=== PATIENT | female | born 1945 | race Caucasian/White ===

== ENCOUNTER 2022-01-10 20:24 | Emergency (ER) | payer MEDICARE, OTHER ==
[2022-01-10 21:04] VITALS: BP 165/83; PULSE 104
[2022-01-10 22:27] LABS: CORONAVIRUS COVID-19 NAA NEGATIVE (NEGATIVE)
== END 2022-01-10 23:03 | disposition home or self-care (01) ==
LOC: JD.ED 20:24
DX: B34.9 Viral infection, unspecified (principal); K21.9 Gastro-esophageal reflux disease without esophagitis; Z88.1 Allergy status to other antibiotic agents; Z88.8 Allergy status to other drugs, medicaments and biological substances; Z79.82 Long term (current) use of aspirin; Z79.899 Other long term (current) drug therapy; Z20.822 Contact with and (suspected) exposure to COVID-19
CPT/HCPCS: 0240U; 71045; 81001; 99283

== ENCOUNTER 2024-07-13 15:38 | Inpatient (IN) | payer MEDICARE, OTHER ==
[2024-07-13 18:58] LABS: BASOPHILS PERCENT AUTO 0.3 % (0.0-1.0); EOSINOPHILS PERCENT AUTO 0.4 % (0.0-6.0); HEMATOCRIT 38.4 % (37.0-47.0); HEMOGLOBIN 12.7 gm/dl (12.0-16.0); IMMATURE GRAN ABSOLUTE AUTO 0.03 K/mm3 (0.00-0.05); IMMATURE GRAN PERCENT AUTO 0.3 % (0.0-0.4); LYMPHOCYTES PERCENT AUTO 8.5 % (24.0-44.0); MEAN CORPUSCULAR HEMOGLOBIN 30.5 pg (28.0-32.0); MEAN CORPUSCULAR HGB CONC 33.1 g/dl (32.0-36.0); MEAN CORPUSCULAR VOLUME 92.1 fl (83.0-99.0); MEAN PLATELET VOLUME 9.2 fl (9.4-12.3); MONOCYTES ABSOLUTE AUTO 0.7 K/mm3 (0.0-0.8); MONOCYTES PERCENT AUTO 6.2 % (0.0-8.0); NEUTROPHILS ABSOLUTE AUTO 9.5 K/mm3 (1.8-7.7); NEUTROPHILS PERCENT AUTO 84.3 % (41.0-71.0); PLATELET COUNT,PLT 256 K/mm3 (150-400); RED BLOOD CELL COUNT 4.17 M/mm3 (4.10-5.30); WHITE BLOOD CELL COUNT,WBC 11.27 K/mm3 (3.9-11.3)
[2024-07-13] MEDS: Piperacillin/Tazobactam 4.5 GM in Sodium Chloride 0.9% 100 ML IV ONE (19:16)
[2024-07-13 19:23] LABS: LACTIC ACID 1.4 mmol/L (0.4-2.0)
[2024-07-13 19:32] LABS: A/G RATIO 0.8 (1-2); ANION GAP 12.5 (5-15); BILIRUBIN TOTAL 0.4 mg/dL (0.2-1.0); C-REACTIVE PROTEIN 13.44 mg/dL (<0.30); CALCIUM 8.6 mg/dL (8.5-10.1); CREATININE 0.7 mg/dL (0.55-1.02); EST CRCL DRUG DOSING (CG) 51.59 mL/min; POTASSIUM,K 3.5 mEq/L (3.5-5.1); PROTEIN TOTAL,TP 6.9 g/dl (6.4-8.2)
[2024-07-13] MEDS: Iopamidol 612 MG/ML 100 ML Bottle IVPUSH ONE (21:06)
[2024-07-14] MEDS: Piperacillin/Tazobactam 4.5 GM in Sodium Chloride 0.9% 100 ML IV SCH (00:35)
[2024-07-14] MEDS ORDERED: Piperacillin/Tazobactam 4.5 GM in Sodium Chloride 0.9% 100 ML IV SCH (03:00)
[2024-07-14 06:03] LABS: BASOPHILS PERCENT AUTO 0.3 % (0.0-1.0); EOSINOPHILS ABSOLUTE AUTO 0.2 K/mm3 (0.0-0.4); EOSINOPHILS PERCENT AUTO 2.5 % (0.0-6.0); HEMATOCRIT 38.5 % (37.0-47.0); HEMOGLOBIN 12.5 gm/dl (12.0-16.0); IMMATURE GRAN ABSOLUTE AUTO 0.03 K/mm3 (0.00-0.05); IMMATURE GRAN PERCENT AUTO 0.3 % (0.0-0.4); LYMPHOCYTES ABSOLUTE AUTO 1.7 K/mm3 (1.0-4.8); LYMPHOCYTES PERCENT AUTO 17.3 % (24.0-44.0); MEAN CORPUSCULAR HGB CONC 32.5 g/dl (32.0-36.0); MEAN CORPUSCULAR VOLUME 92.5 fl (83.0-99.0); MEAN PLATELET VOLUME 9.5 fl (9.4-12.3); MONOCYTES ABSOLUTE AUTO 0.8 K/mm3 (0.0-0.8); MONOCYTES PERCENT AUTO 8.5 % (0.0-8.0); NEUTROPHILS ABSOLUTE AUTO 6.9 K/mm3 (1.8-7.7); NEUTROPHILS PERCENT AUTO 71.1 % (41.0-71.0); PLATELET COUNT,PLT 254 K/mm3 (150-400); RED BLOOD CELL COUNT 4.16 M/mm3 (4.10-5.30); WHITE BLOOD CELL COUNT,WBC 9.71 K/mm3 (3.9-11.3)
[2024-07-14] MEDS ORDERED: Ondansetron 4 MG/2 ML SDV IV PRN (06:03)
[2024-07-14] MEDS ORDERED: Acetaminophen 325 MG Tab PO PRN (06:03)
[2024-07-14 06:28] LABS: A/G RATIO 0.7 (1-2); ALBUMIN 2.7 g/dl (3.4-5.0); ANION GAP 13.8 (5-15); BILIRUBIN TOTAL 0.5 mg/dL (0.2-1.0); C-REACTIVE PROTEIN 10.24 mg/dL (<0.30); CALCIUM 8.9 mg/dL (8.5-10.1); CREATININE 0.8 mg/dL (0.55-1.02); EST CRCL DRUG DOSING (CG) 45.14 mL/min; POTASSIUM,K 3.8 mEq/L (3.5-5.1); PROTEIN TOTAL,TP 6.7 g/dl (6.4-8.2)
[2024-07-14] MEDS: Pantoprazole 40 MG Tab.CR PO SCH (06:37)
[2024-07-14] MEDS: Enoxaparin 40 MG/0.4 ML Syringe SUBCUT SCH (08:28)
[2024-07-14] MEDS: traMADol 50 MG Tab PO PRN (08:29)
[2024-07-14] MEDS: Aspirin 81 MG Tab.Chew PO SCH (08:31)
[2024-07-14] MEDS: Rosuvastatin 10 MG Tab PO SCH (08:31)
[2024-07-14] MEDS: Morphine 2 MG/ML SYRINGE IVPUSH PRN (09:00)
[2024-07-14] MEDS ORDERED: Pantoprazole 40 MG Tab.CR PO SCH (09:00)
[2024-07-14] MEDS: Ampicillin/Sulbactam Na 3 GM in Sodium Chloride 0.9% 100 ML IV SCH (09:01)
[2024-07-14 13:48] VITALS: BP 160/72; PULSE 72
[2024-07-14] MEDS: Lidocaine 1% with EPINEPHrine 1:100,000 20 ML MDV ONE (13:57)
== END 2024-07-14 18:13 | disposition home or self-care (01) | DRG 603 ==
LOC: JD.ED 15:38 → JD.MS 22:21
PROVIDERS: ADMIT Internal Medicine; ATTEND Student in an Organized Health Care Education/Training Program
PROC: 0J9K0ZZ Drainage of Left Hand Subcutaneous Tissue and Fascia, Open Approach (ICD-10-PCS; 2024-07-14)
PROC: 3E1038Z Irrigation of Skin and Mucous Membranes using Irrigating Substance, Percutaneous Approach (ICD-10-PCS; principal; 2024-07-14 12:30)
DX: L02.512 Cutaneous abscess of left hand (principal); L02.414 Cutaneous abscess of left upper limb; L03.114 Cellulitis of left upper limb; E78.00 Pure hypercholesterolemia, unspecified; I10 Essential (primary) hypertension; K21.9 Gastro-esophageal reflux disease without esophagitis; Z88.1 Allergy status to other antibiotic agents; Z88.8 Allergy status to other drugs, medicaments and biological substances; Z79.82 Long term (current) use of aspirin; Z79.899 Other long term (current) drug therapy; Z79.2 Long term (current) use of antibiotics; Z87.440 Personal history of urinary (tract) infections; Z87.81 Personal history of (healed) traumatic fracture; Z90.89 Acquired absence of other organs; Z98.890 Other specified postprocedural states; Z98.49 Cataract extraction status, unspecified eye; Z95.1 Presence of aortocoronary bypass graft; Z90.710 Acquired absence of both cervix and uterus
CPT/HCPCS: 36415; 73202 ×2; 80053; 83605; 85025; 86140; 87040 ×2; J2543; J3490; Q9967; 87070; 87205; 96365; 99284-25; A9270-GY; J0295; J1650; J2270